=== PATIENT | male | born 1980 | race Caucasian/White ===

== ENCOUNTER 2018-03-27 17:53 | Observation (INO) | payer SELFPAY ==
--- NOTE | 2018-03-27 18:13 | ER Document Report ---
ED Substance Abuse / Acc. OD - General Chief Complaint: Possible Overdose Stated Complaint: POSSIBLE OVERDOSE Time Seen by Provider: 03/27/18 18:12 Mode of Arrival: Stretcher Information source: Emergency Med Personnel Cannot obtain history due to: Altered mental status Notes: Patient was brought in by EMS after he had injected himself with heroin. Patient became altered on 911 was called. EMS gave him a milligram of Narcan and he became more arousable and talking. Patient said he abuses heroin and he intends to quit. Patient also complained of headache and chest pain. - HPI Patient complains to provider of: Accidental overdose, Drug abuse, Substance abuse Onset: Just prior to arrival Onset/Duration: Sudden Quality of pain: Achy Severity: Mild Pain Level: 2 Overdose of: Other - Heroine Associated Symptoms: Chest pain/discomfort, Headache Similar symptoms previously: No Recently seen / treated by doctor: No - Related Data Allergies/Adverse Reactions: No Known Allergies Allergy (Unverified 03/27/18 18:23) Past Medical History - Social History Smoking Status: Unknown if Ever Smoked Family History: Reviewed & Not Pertinent Review of Systems - Review of Systems Constitutional: No symptoms reported EENT: No symptoms reported Cardiovascular: Chest pain Respiratory: No symptoms reported Gastrointestinal: No symptoms reported Genitourinary: No symptoms reported Male Genitourinary: No symptoms reported Musculoskeletal: No symptoms reported Skin: No symptoms reported Hematologic/Lymphatic: No symptoms reported Neurological/Psychological: Headaches -: Yes All other systems reviewed and negative Physical Exam - Vital signs Vitals: Resp BP Pulse Ox 11 L 126/96 H 91 L 03/27/18 18:01 03/27/18 18:01 03/27/18 18:01 Interpretation: Normal - General General appearance: Alert, Lethargic In distress: None - HEENT Head: Normocephalic, Atraumatic Eyes: Normal Pupils: PERRL - Respiratory Respiratory status: No respiratory distress Chest status: Nontender Breath sounds: Normal Chest palpation: Normal - Cardiovascular Rhythm: Regular Heart sounds: Normal auscultation Murmur: No - Abdominal Inspection: Normal Distension: No distension Bowel sounds: Normal Tenderness: Nontender Organomegaly: No organomegaly - Back Back: Normal, Nontender - Extremities General upper extremity: Normal inspection, Nontender, Normal color, Normal ROM , Normal temperature General lower extremity: Normal inspection, Nontender, Normal color, Normal ROM , Normal temperature, Normal weight bearing. No: Fernando's sign - Neurological Neuro grossly intact: Yes Cognition: Normal Orientation: AAOx4 [place] Coma Scale Eye Opening: Spontaneous [place] Coma Scale Verbal: Oriented [place] Coma Scale Motor: Obeys Commands [place] Coma Scale Total: 15 Speech: Normal Motor strength normal: LUE, RUE, LLE, RLE Sensory: Normal - Psychological Associated symptoms: Normal affect, Normal mood - Skin Skin Temperature: Warm Skin Moisture: Dry Skin Color: Normal Course - Vital Signs Vital signs: Temp Pulse Resp BP Pulse Ox 97.9 F 11 L 126/96 H 94 03/27/18 18:04 03/27/18 18:01 03/27/18 18:01 03/27/18 18:18 - Laboratory Result Diagrams: 03/27/18 17:26 03/27/18 17:26 Laboratory results interpreted by me: 03/27/18 03/27/18 03/27/18 17:26 17:26 17:26 Hgb 12.2 L Hct 37.2 L MCV 78 L MCH 25.5 L RDW 21.7 H Plt Count 549 H Carbon Dioxide 32 H Glucose 153 H Magnesium 2.4 H NT-Pro-B Natriuret Pep 257 H Total Protein 8.3 H - Diagnostic Test Radiology reviewed: Image reviewed, Reports reviewed - EKG Interpretation by Me EKG shows normal: Sinus rhythm Rate: Tachycardia - 101 When compared to previous EKG there are: Previous EKG unavailable Additional EKG results interpreted by me: 03/27/18 18:14 Prolonged QT, No STEMI. - Transfer of Care Care transferred to following provider: Patient will be admitted by Dr. Fabiola Howe. Notes: 03/27/18 18:24 Heroin abuse. Altered mental status. Discharge - Discharge Clinical Impression: Heroin abuse Altered mental status Qualifiers: Altered mental status type: unspecified Qualified Code(s): R41.82 - Altered mental status, unspecified Heroin overdose Qualifiers: Encounter type: initial encounter Injury intent: accidental or unintentional Qualified Code(s): T40.1X1A - Poisoning by heroin, accidental (unintentional), initial encounter Condition: Stable Disposition: ADMITTED OBSERVATION Admitting Provider: Hospitalist Unit Admitted: Telemetry
[2018-03-27] MEDS ORDERED: NALOXONE HCL INJ 2 MG/2 ML DISP.SYRIN IV ONE (18:19)
[2018-03-27] MEDS ORDERED: NORMAL SALINE 1000 ML 1,000 ML IV ONE (18:20)
[2018-03-27 18:29] LABS: ABSOLUTE BASOPHILS # (AUTO) 0.1 10^3/uL (0.0-0.2); ABSOLUTE EOSINOPHILS # (AUTO) 0.6 10^3/uL (0.0-0.6); ABSOLUTE MONOCYTES (AUTO) 0.7 10^3/uL (0.1-1.4); ABSOLUTE NEUT (AUTO) 4.9 10^3/uL (1.7-8.2); BASOPHILS % (AUTO) 0.6 % (0-2); HEMATOCRIT 37.2 % (37.9-51.0); HEMOGLOBIN 12.2 g/dL (13.5-17.0); LYMPHOCYTES % (AUTO) 39.4 % (13-45); MEAN CORPUSCULAR HEMOGLOBIN 25.5 pg (27.0-33.4); MEAN CORPUSCULAR HGB CONC 32.6 g/dL (32.0-36.0); MEAN CORPUSCULAR VOLUME 78 fl (80-97); MONOCYTES % (AUTO) 6.4 % (3-13); PLATELET COUNT 549 10^3/uL (150-450); RED BLOOD COUNT 4.76 10^6/uL (4.35-5.55); RED CELL DISTRIBUTION WIDTH 21.7 % (11.5-14.0); SEGMENTED NEUTROPHILS % (AUTO) 47.6 % (42-78); TOTAL CELLS COUNTED % (AUTO) 100 %; WHITE BLOOD COUNT 10.2 10^3/uL (4.0-10.5)
[2018-03-27 18:32] LABS: ALANINE AMINOTRANSFERASE 36 U/L (21-72); ALBUMIN 4.1 g/dL (3.5-5.0); ALKALINE PHOSPHATASE 101 U/L (38-126); ANION GAP 8 (5-19); ASPARTATE AMINO TRANSFERASE 42 U/L (17-59); BILIRUBIN,DIRECT 0.3 mg/dL (0.0-0.4); BILIRUBIN,TOTAL 0.5 mg/dL (0.2-1.3); BLOOD UREA NITROGEN 18 mg/dL (7-20); CALCIUM 9.2 mg/dL (8.4-10.2); CARBON DIOXIDE 32 mmol/L (22-30); CHLORIDE 100 mmol/L (98-107); CREATINE KINASE 98 U/L (55-170); GLUCOSE 153 mg/dL (75-110); POTASSIUM 4.8 mmol/L (3.6-5.0); TOTAL PROTEIN 8.3 g/dL (6.3-8.2)
[2018-03-27 18:33] LABS: ALCOHOL < 10 mg/dL (NONE DETECTED)
[2018-03-27 18:44] LABS: CREATINE KINASE MB 1.35 ng/mL (<4.55); NT PRO BNP 257 pg/mL (<125)
[2018-03-27 18:45] LABS: TROPONIN I < 0.012 ng/mL
--- NOTE | 2018-03-27 20:16 | RADIOLOGY REPORT (SQ) ---
EXAM DESCRIPTION: CT HEAD WITHOUT COMPLETED DATE/TIME: 03/27/2018 7:50 pm REASON FOR STUDY: Headache COMPARISON: None. TECHNIQUE: Axial images acquired through the brain without intravenous contrast. Images reviewed wi th bone, brain and subdural windows. Additional sagittal and coronal reconstructions were generated. Images stored on PACS. All CT scanners at this facility use dose modulation, iterative reconstruction, and/or weight based d osing when appropriate to reduce radiation dose to as low as reasonably achievable (ALARA). [facility]: Dose Right [facility]: CareDose [facility]: Dose Right [facility]: Teradose 4D [facility]: [employer] RADIATION DOSE: CT Rad equipment meets quality standard of care and radiation dose reduction techniq ues were employed. CTDIvol: 53.2 mGy. DLP: 991 mGy-cm. mGy. LIMITATIONS: None. FINDINGS: VENTRICLES: Normal size and contour. CEREBRUM: No masses. No hemorrhage. No midline shift. No evidence for acute infarction. Normal gra y/white matter differentiation. No areas of low density in the white matter. CEREBELLUM: No masses. No hemorrhage. No alteration of density. No evidence for acute infarction. EXTRAAXIAL SPACES: No fluid collections. No masses. ORBITS AND GLOBE: No intra- or extraconal masses. Normal contour of globe without masses. CALVARIUM: No fracture. PARANASAL SINUSES: No fluid or mucosal thickening. SOFT TISSUES: No mass or hematoma. OTHER: No other significant finding. IMPRESSION: NORMAL BRAIN CT WITHOUT CONTRAST. EVIDENCE OF ACUTE STROKE: NO. COMMENT: Quality ID # [id number]: Final reports with documentation of one or more dose reduction techniques (e.g., Automated exposure control, adjustment of the mA and/or kV according to patient size, use of iterative reconstruction technique) TECHNICAL DOCUMENTATION: JOB ID: [id number] [employer]- All Rights Reserved Reading location - IP/workstation name: [email or web address]
--- NOTE | 2018-03-27 20:17 | RADIOLOGY REPORT (SQ) ---
EXAM DESCRIPTION: CHEST SINGLE VIEW COMPLETED DATE/TIME: 03/27/2018 7:51 pm REASON FOR STUDY: CP COMPARISON: None. EXAM PARAMETERS: NUMBER OF VIEWS: One view. TECHNIQUE: Single frontal radiographic view of the chest acquired. RADIATION DOSE: NA LIMITATIONS: None. FINDINGS: LUNGS AND PLEURA: Ill-defined opacification in the left base. MEDIASTINUM AND HILAR STRUCTURES: No masses. Contour normal. HEART AND VASCULAR STRUCTURES: Heart normal in size. Normal vasculature. BONES: No acute findings. HARDWARE: None in the chest. OTHER: No other significant finding. IMPRESSION: Cannot exclude very limited left lower lobe pneumonia. TECHNICAL DOCUMENTATION: JOB ID: [id number] [employer]- All Rights Reserved Reading location - IP/workstation name: [email or web address]
[2018-03-27] MEDS ORDERED: PROMETHAZINE HCL INJ 25 MG/1 ML VIAL IV PRN (22:37)
[2018-03-27] MEDS ORDERED: ACETAMINOPHEN 325 MG TABLET PO PRN (22:37)
[2018-03-27] MEDS ORDERED: MAG HYDROX/AL HYDROX/SIMETH SUSP 30 ML UDCUP PO PRN (22:37)
[2018-03-27] MEDS ORDERED: NORMAL SALINE 1000 ML 1,000 ML IV PRN (22:37)
[2018-03-27] MEDS ORDERED: PROMETHAZINE HCL 25 MG TABLET PO PRN (22:37)
[2018-03-27] MEDS ORDERED: DOXYCYCLINE HYCLATE 100 MG TABLET PO ONE (23:00)
[2018-03-27 23:13] LABS: APPEARANCE,URINE CLOUDY; BILIRUBIN,URINE NEGATIVE (NEGATIVE); COLOR,URINE YELLOW; GLUCOSE, URINE NEGATIVE (NEGATIVE); KETONES,URINE NEGATIVE (NEGATIVE); LEUKOCYTE ESTERASE,URINE NEGATIVE (NEGATIVE); NITRITE,URINE NEGATIVE (NEGATIVE); PROTEIN,URINE NEGATIVE (NEGATIVE); URINE SPECIFIC GRAVITY 1.011; UROBILINOGEN,URINE NEGATIVE mg/dL (<2.0)
[2018-03-27 23:20] LABS: URINE AMPHETAMINES SCREEN UNCONFIRMED POSITIVE; URINE BARBITURATES SCREEN NEGATIVE; URINE BENZODIAZEPINES SCREEN NEGATIVE; URINE COCAINE SCREEN NEGATIVE; URINE MARIJUANA (THC) SCREEN NEGATIVE; URINE METHADONE SCREEN NEGATIVE; URINE PHENCYCLIDINE SCREEN NEGATIVE
[2018-03-28] MEDS: OXYCODONE-ACETAMINOPHEN 5-325 MG TABLET PO PRN ×4 (00:03→12:42)
[2018-03-28] MEDS ORDERED: DOXYCYCLINE HYCLATE 100 MG TABLET PO ONE (00:37)
--- NOTE | 2018-03-28 02:15 | PDOC H&P ---
History of Present Illness Admission Date/PCP: 03/27/18 20:49 None Patient complains of: Altered mental status History of Present Illness: LUCIUS FLETCHER is a 38 year old male with history of IV drug abuse who came obtunded to the emergency department. By the time I went to evaluate that he was alert and oriented x4, he tells me that he went in the evening to see his girlfriend and he started shooting heroin, he passed out and does not remember anything until he woke up in the emergency department. Patient was brought by EMS, given 1 mg of Narcan and he became more arousable but was a still falling asleep. Patient abuses meth and heroin. Initially complaining of headache and chest pain which resolved. Patient tells me that he has been hospitalized about 3 weeks ago in [place] and he has been told he has some splenic fluid trauma, he was there for 8 days. Tells me that he is having hemoptysis with dark blood on and off, apparently no workup has been done. Urine drug screen positive for opiates and amphetamines CT of the head negative. Chest x-ray with possible left lower lobe infiltrates , patient tells me that he was diagnosed with possible pneumonia during his last hospitalization in [place] and he was discharged with p.o. antibiotics that he completed. Past Medical History Medical History: None Psychiatric Medical History: Denies: Depression Past Surgical History Past Surgical History: Reports: None Social History Smoking Status: Current Every Day Smoker - 1 pack/day, currently states 2-3 cigarettes a day Last Time Smoked: 2 or 3 days ago Frequency of Alcohol Use: Social Hx Recreational Drug Use: Yes Drugs: Heroin, Other - IV methamphetamines Hx Prescription Drug Abuse: No Family History Family History: Reviewed & Not Pertinent Parental Family History Reviewed: No Children Family History Reviewed: NA Sibling(s) Family History Reviewed.: NA Medication/Allergy Home Medications: No Home Medications 03/27/18 Allergies/Adverse Reactions: No Known Allergies Allergy (Unverified 03/27/18 18:23) Review of Systems Review of Systems: As outlined in the HPI, others negative Physical Exam Vital Signs: Temp Pulse Resp BP Pulse Ox 97.9 F 84 20 106/74 96 03/27/18 23:53 03/27/18 23:53 03/27/18 23:53 03/27/18 23:53 03/27/18 23:53 Intake & Output 03/26/18 03/27/18 03/28/18 06:59 06:59 06:59 Weight 68.9 kg Additional comments: General appearance: Disheveled, skinny, alert and cooperative, and appears to be in no acute distress Head: Normocephalic Eyes: PEERL, EOMI, vision is grossly intact. Ears: External auditory canal and tympanic membranes clear, hearing grossly intact. Nose: No nasal discharge. Throat: Oral cavity and pharynx normal. No inflammation, swelling, exudate or lesions. Neck: Neck supple, nontender without lymphadenopathy, masses or thyromegaly. Cardiac: Normal S1 and S2. No S3, S4 or murmurs. Rhythm is regular. There is no peripheral edema, cyanosis or pallor. Extremities are warm and well perfused. Capillary refill is less than 2 seconds. No carotid bruits. Lungs: Clear to auscultation and percussion without rales, rhonchi, wheezing or diminished breath sounds. Not using accessory muscles. Abdomen: Positive bowel sounds. Soft. Nondistended, nontender. No guarding or rebound. No masses. No hepatosplenomegaly Extremities: No significant deformity or joint abnormality. No edema. Peripheral pulses intact. No varicosities. Neurological: Cranial nerves II through XII grossly intact. Strength and sensation symmetric and intact throughout. Reflexes 2+ throughout. Skin: Multiple track yeager in upper and lower extremities, warm and dry. Psychiatric: The mental examination revealed the patient was oriented to person , place, and time. The patient was able to demonstrate good judgment on recent , without hallucinations, abnormal affect or abnormal behaviors. Results Laboratory Results: 03/27/18 22:52 Urine Color YELLOW Urine Appearance CLOUDY Urine pH 7.0 Ur Specific [place] 1.011 Urine Protein NEGATIVE Urine Glucose (UA) NEGATIVE Urine Ketones NEGATIVE Urine Blood NEGATIVE Urine Nitrite NEGATIVE Ur Leukocyte Esterase NEGATIVE Urine RBC (Auto) 0 03/27/18 03/27/18 03/27/18 17:26 17:26 22:52 WBC 10.2 RBC 4.76 Hgb 12.2 L Hct 37.2 L MCV 78 L MCH 25.5 L MCHC 32.6 RDW 21.7 H Plt Count 549 H Seg Neutrophils % 47.6 Lymphocytes % 39.4 Monocytes % 6.4 Eosinophils % 6.0 Basophils % 0.6 Absolute Neutrophils 4.9 Absolute Lymphocytes 4.0 Absolute Monocytes 0.7 Absolute Eosinophils 0.6 Absolute Basophils 0.1 Sodium 140.0 Potassium 4.8 Chloride 100 Carbon Dioxide 32 H Anion Gap 8 BUN 18 Creatinine 0.91 Est GFR ( Amer) > 60 Est GFR (Non-Af Amer) > 60 Glucose 153 H Calcium 9.2 Magnesium 2.4 H Total Bilirubin 0.5 Direct Bilirubin 0.3 AST 42 ALT 36 Alkaline Phosphatase 101 Creatine Kinase 98 Total Protein 8.3 H Albumin 4.1 Urine Color YELLOW Urine Appearance CLOUDY Urine pH 7.0 Ur Specific [place] 1.011 Urine Protein NEGATIVE Urine Glucose (UA) NEGATIVE Urine Ketones NEGATIVE Urine Blood NEGATIVE Urine Nitrite NEGATIVE Urine Bilirubin NEGATIVE Urine Urobilinogen NEGATIVE Ur Leukocyte Esterase NEGATIVE Urine RBC (Auto) 0 U Hyaline Cast (Auto) 14 Urine Mucus (Auto) RARE Urine Ascorbic Acid NEGATIVE Serum Alcohol < 10 Impressions: Head CT 03/27/18 18:19 IMPRESSION: NORMAL BRAIN CT WITHOUT CONTRAST. EVIDENCE OF ACUTE STROKE: NO. Assessment & Plan - Diagnosis (1) Heroin overdose Qualifiers: Encounter type: initial encounter Injury intent: accidental or unintentional Qualified Code(s): T40.1X1A - Poisoning by heroin, accidental ( unintentional), initial encounter Is this a current diagnosis for this admission?: Yes Plan: Patient comes obtunded secondary to heroin overdose, after being the ED given naloxone and IV fluids he woke up, was alert and oriented x4. We will keep him under telemetry monitoring with observation overnight. In the meantime I will send hepatitis panel and HIV. CT head negative (2) Hemoptysis Is this a current diagnosis for this admission?: Yes Plan: Patient complains of hemoptysis for the last month, I am concerned that the patient can be shooting septic emboli that we cannot see in the chest x-ray. I will go ahead and place a CT chest with contrast. No active hemoptysis in the ED. Besides the on and off hemoptysis patient does not have other respiratory symptoms. (3) Pneumonia Qualifiers: Laterality: left Lung location: lower lobe of lung Is this a current diagnosis for this admission?: Yes Plan: During his last hospitalization in [place] he was diagnosed with pneumonia and completed p.o. treatment at home. These images can be old but also can be a new aspiration pneumonia. Patient does not have any respiratory symptom besides intermittent hemoptysis for a month. I will go ahead and place him on p.o. doxycycline until we can get done the CTA chest. - Time Time Spent: 30 to 50 Minutes
[2018-03-28 05:16] LABS: ABSOLUTE EOSINOPHILS # (AUTO) 0.5 10^3/uL (0.0-0.6); ABSOLUTE LYMPHOCYTES (AUTO) 2.5 10^3/uL (0.5-4.7); ABSOLUTE MONOCYTES (AUTO) 0.5 10^3/uL (0.1-1.4); ABSOLUTE NEUT (AUTO) 2.7 10^3/uL (1.7-8.2); BASOPHILS % (AUTO) 0.7 % (0-2); HEMOGLOBIN 11.4 g/dL (13.5-17.0); MEAN CORPUSCULAR HEMOGLOBIN 25.5 pg (27.0-33.4); MEAN CORPUSCULAR HGB CONC 32.5 g/dL (32.0-36.0); MEAN CORPUSCULAR VOLUME 79 fl (80-97); MONOCYTES % (AUTO) 7.6 % (3-13); PLATELET COUNT 441 10^3/uL (150-450); RED BLOOD COUNT 4.46 10^6/uL (4.35-5.55); RED CELL DISTRIBUTION WIDTH 21.5 % (11.5-14.0); SEGMENTED NEUTROPHILS % (AUTO) 43.7 % (42-78); TOTAL CELLS COUNTED % (AUTO) 100 %; WHITE BLOOD COUNT 6.3 10^3/uL (4.0-10.5)
[2018-03-28 05:41] LABS: ALANINE AMINOTRANSFERASE 37 U/L (21-72); ALBUMIN 3.3 g/dL (3.5-5.0); ALKALINE PHOSPHATASE 80 U/L (38-126); ANION GAP 8 (5-19); ASPARTATE AMINO TRANSFERASE 36 U/L (17-59); BILIRUBIN,DIRECT 0.1 mg/dL (0.0-0.4); BILIRUBIN,TOTAL 0.2 mg/dL (0.2-1.3); BLOOD UREA NITROGEN 15 mg/dL (7-20); CALCIUM 8.8 mg/dL (8.4-10.2); CARBON DIOXIDE 31 mmol/L (22-30); CHLORIDE 103 mmol/L (98-107); GLUCOSE 70 mg/dL (75-110); POTASSIUM 4.5 mmol/L (3.6-5.0); SODIUM 141.6 mmol/L (137-145); TOTAL PROTEIN 7.1 g/dL (6.3-8.2)
--- NOTE | 2018-03-28 07:55 | EKG REPORT ---
SEVERITY:- BORDERLINE ECG - SINUS TACHYCARDIA BORDERLINE PROLONGED QT INTERVAL : Confirmed by: Chuy Jessica MD 28-Mar-2018 07:55:15
[2018-03-28] MEDS ORDERED: DOXYCYCLINE HYCLATE 100 MG TABLET PO SCH (10:00)
[2018-03-28] MEDS ORDERED: ENOXAPARIN SODIUM INJ 40 MG/0.4 ML DISP.SYRIN SUBCUT SCH (10:00)
--- NOTE | 2018-03-28 13:44 | RADIOLOGY REPORT (SQ) ---
EXAM DESCRIPTION: CT CHEST WITH COMPLETED DATE/TIME: 03/28/2018 9:13 am REASON FOR STUDY: hemoptysis COMPARISON: None. TECHNIQUE: CT scan of the chest performed using helical scanning technique with dynamic intravenous contrast injection. Images reviewed with lung, soft tissue and bone windows. Reconstructed coronal and sagittal MPR and MIP images reviewed. All images stored on PACS. All CT scanners at this facility use dose modulation, iterative reconstruction, and/or weight based d osing when appropriate to reduce radiation dose to as low as reasonably achievable (ALARA). [facility]: Dose Right [facility]: CareDose [facility]: Dose Right [facility]: Teradose 4D [facility]: [employer] CONTRAST TYPE AND DOSE: 80 mL Omnipaque 350- low osmolar. RENAL FUNCTION: BUN 15 creatinine 0.7 RADIATION DOSE: . LIMITATIONS: None. FINDINGS: LUNGS AND PLEURA: Small left pleural effusion. Focal opacification in the left lower lobe with some air bronchograms. HILAR AND MEDIASTINAL STRUCTURES: No identified masses or abnormal nodes. HEART AND VASCULAR STRUCTURES: No aneurysm or dissection. No central pulmonary emboli. No pericardi al effusion. HARDWARE: None in the chest. UPPER ABDOMEN: Large area of decreased attenuation in the subcapsular area of the spleen laterally. THYROID AND OTHER SOFT TISSUES: No masses. No adenopathy. BONES: No significant finding. OTHER: No other significant finding. IMPRESSION: 1. Small left pleural effusion. What appears to be left lower lobe pneumonia. 2. Decreased attenuation in the subcapsular spleen. Is there history recent trauma? Could represen t an older subcapsular hematoma. TECHNICAL DOCUMENTATION: JOB ID: [id number] Quality ID # [id number]: Final reports with documentation of one or more dose reduction techniques (e.g., Au tomated exposure control, adjustment of the mA and/or kV according to patient size, use of iterative reconstruction technique) 2010 [employer] [employer] ([employer])- All Rights Reserved Reading location - IP/workstation name: [email or web address]
--- NOTE | 2018-03-28 16:25 | PDOC DISCHARGE SUMMARY ---
General - Admit/Disc Date/PCP Admission Date/Primary Care Provider: 03/27/18 20:49 Discharge Date: 03/28/18 - Discharge Diagnosis (1) Heroin overdose Is this a current diagnosis for this admission?: Yes Summary: Initially required Narcan. We kept him in here for monitoring to make sure he did not need additional doses. He has not expressed any real desire to quit. (2) Aspiration pneumonia Is this a current diagnosis for this admission?: Yes Summary: Likely when he overdosed. We did a CT scan of his chest which did not show anything more than the left lower lobe pneumonia. I started him on some clindamycin. Complete this is an outpatient. - Additional Information Discharge Diet: Regular Discharge Activity: Activity As Tolerated Prescriptions: Clindamycin HCl 450 mg PO TID #45 capsule Home Medications: Clindamycin HCl 450 mg PO TID #45 capsule 03/28/18 History of Present Illness History of Present Illness: LUCIUS FLETCHER is a 38 year old male with history of IV drug abuse who came obtunded to the emergency department. By the time I went to evaluate that he was alert and oriented x4, he tells me that he went in the evening to see his girlfriend and he started shooting heroin, he passed out and does not remember anything until he woke up in the emergency department. Patient was brought by EMS, given 1 mg of Narcan and he became more arousable but was a still falling asleep. Patient abuses meth and heroin. Initially complaining of headache and chest pain which resolved. Patient tells me that he has been hospitalized about 3 weeks ago in [place] and he has been told he has some splenic fluid trauma, he was there for 8 days. Tells me that he is having hemoptysis with dark blood on and off, apparently no workup has been done. Urine drug screen positive for opiates and amphetamines CT of the head negative. Chest x-ray with possible left lower lobe infiltrates , patient tells me that he was diagnosed with possible pneumonia during his last hospitalization in [place] and he was discharged with p.o. antibiotics that he completed. Hospital Course Hospital Course: We started him empirically on some antibiotics for a likely aspiration pneumonia , and he can complete a course this is an outpatient. He did complain of some hemoptysis but it we have not seen any of that here. Chest CT did not show anything more sinister than the left lower lobe pneumonia from his aspiration. He overdosed on heroin and that is why he came to the hospital. He responded to Narcan. We kept him here for observation to make sure he did not need any further dosing. He is maintaining a fairly normal mental status without requiring additional doses of Narcan. He has not expressed any desire to quit. He is being discharged home in good condition. He was strongly encouraged to abstain from drugs. Physical Exam Vital Signs: Temp Pulse Resp BP Pulse Ox 97.9 F 74 20 106/74 96 03/28/18 15:53 03/28/18 15:53 03/28/18 15:53 03/28/18 15:53 03/28/18 15:53 Intake & Output 03/27/18 03/28/18 03/29/18 06:59 06:59 06:59 Intake Total 744 Balance 744 Weight 68.9 kg General appearance: PRESENT: no acute distress, cooperative, disheveled Respiratory exam: PRESENT: clear to auscultation nadia, unlabored. ABSENT: accessory muscle use, rales, rhonchi, tachypnea, wheezes Cardiovascular exam: PRESENT: RRR, +S1, +S2. ABSENT: diastolic murmur, systolic murmur GI/Abdominal exam: PRESENT: normal bowel sounds, soft. ABSENT: guarding, rebound, tenderness Extremities exam: PRESENT: full ROM. ABSENT: pedal edema Musculoskeletal exam: PRESENT: ambulatory, normal inspection. ABSENT: deformity Neurological exam: PRESENT: alert, awake, oriented to person, oriented to place , oriented to time, oriented to situation Psychiatric exam: PRESENT: appropriate affect, normal mood Results Laboratory Results: 03/28/18 04:05 03/28/18 04:05 03/27/18 03/28/18 03/28/18 22:52 04:05 04:05 WBC 6.3 RBC 4.46 Hgb 11.4 L Hct 35.0 L MCV 79 L MCH 25.5 L MCHC 32.5 RDW 21.5 H Plt Count 441 Seg Neutrophils % 43.7 Lymphocytes % 40.0 Monocytes % 7.6 Eosinophils % 8.0 H Basophils % 0.7 Absolute Neutrophils 2.7 Absolute Lymphocytes 2.5 Absolute Monocytes 0.5 Absolute Eosinophils 0.5 Absolute Basophils 0.0 Sodium 141.6 Potassium 4.5 Chloride 103 Carbon Dioxide 31 H Anion Gap 8 BUN 15 Creatinine 0.70 Est GFR ( Amer) > 60 Est GFR (Non-Af Amer) > 60 Glucose 70 L Calcium 8.8 Total Bilirubin 0.2 AST 36 ALT 37 Alkaline Phosphatase 80 Total Protein 7.1 Albumin 3.3 L Urine Color YELLOW Urine Appearance CLOUDY Urine pH 7.0 Ur Specific [place] 1.011 Urine Protein NEGATIVE Urine Glucose (UA) NEGATIVE Urine Ketones NEGATIVE Urine Blood NEGATIVE Urine Nitrite NEGATIVE Ur Leukocyte Esterase NEGATIVE Urine RBC (Auto) 0 Impressions: Chest CT 03/27/18 00:00 IMPRESSION: 1. Small left pleural effusion. What appears to be left lower lobe pneumonia. 2. Decreased attenuation in the subcapsular spleen. Is there history recent trauma? Could represent an older subcapsular hematoma. Head CT 03/27/18 18:19 IMPRESSION: NORMAL BRAIN CT WITHOUT CONTRAST. EVIDENCE OF ACUTE STROKE: NO. Qualifiers - * PATIENT BEING DISCHARGED WITH ANY OF THE FOLLOWING DIAGNOSIS: No
[2018-03-28 17:25] VITALS: BP 108/68
[2018-03-29 07:43] LABS: HEPATITIS A AB IGM Negative (Negative); HEPATITIS B CORE AB IGM Negative (Negative); HEPATITS B SURFACE ANTIGEN Negative (Negative)
[2018-03-29 07:46] LABS: HEPATITIS C VIRUS ANTIBODY >11.0 s/co ratio (0.0-0.9)
== END 2018-03-28 17:20 | disposition home or self-care (01) ==
LOC: ER 17:53 → EH 20:49 → 4N 23:52
PROVIDERS: ADMIT Internal Medicine; ATTEND Internal Medicine
DX: T40.1X1A Poisoning by heroin, accidental (unintentional), initial encounter (principal); J69.0 Pneumonitis due to inhalation of food and vomit; F15.10 Other stimulant abuse, uncomplicated; F11.10 Opioid abuse, uncomplicated; R51 Headache; R00.0 Tachycardia, unspecified; F17.210 Nicotine dependence, cigarettes, uncomplicated
CPT/HCPCS: 93005; 99285; 96374; 36415 ×2; 82553; 80307 ×2; 82550; 83735; 85025 ×2; 80053 ×2; 81001; 84484; 86701; 80074; 83880; 71045; 70450; 71260; 93010; G0378 ×2; J2310; J7030 ×2

== ENCOUNTER 2020-01-07 15:04 | Emergency (ER) | payer SELFPAY ==
[2020-01-07 15:19] VITALS: BP 124/79
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
[2020-01-07] MEDS ORDERED: KETOROLAC TROMETHAMINE 60 MG/2 ML SDV IM ONE (17:30)
== END 2020-01-07 17:36 | disposition home or self-care (01) ==
LOC: ER 15:04
DX: M25.512 Pain in left shoulder (principal); V28.9XXA Unspecified motorcycle rider injured in noncollision transport accident in traffic accident, initial encounter; F17.200 Nicotine dependence, unspecified, uncomplicated
CPT/HCPCS: 99283; 96372; 73030; J1885

== ENCOUNTER 2020-03-14 19:34 | Emergency (ER) | payer SELFPAY ==
[2020-03-14 19:43] VITALS: BP 123/90
[2020-03-14] MEDS ORDERED: CYCLOBENZAPRINE HCL 10 MG TABLET PO ONE (19:53)
[2020-03-14] MEDS ORDERED: METHYLPREDNISOLONE INJ 125 MG/2 ML SDV IM ONE (19:53)
[2020-03-14] MEDS ORDERED: KETOROLAC TROMETHAMINE 60 MG/2 ML SDV IM ONE (19:53)
--- NOTE | 2020-03-14 20:51 | RADIOLOGY REPORT (SQ) ---
EXAM DESCRIPTION: XR THORACIC SPINE 2 VIEWS COMPLETED DATE/TME: 03/14/2020 19:52 CLINICAL HISTORY: 40 years, Male, back pain COMPARISON: March 28, [address] NUMBER OF VIEWS: 2 TECHNIQUE: Frontal and lateral views of the thoracic spine were obtained LIMITATIONS: None. FINDINGS: There is no evidence of thoracic spine fracture or subluxation. Mild apparent dextroscoliosis is noted, most likely positional when correlated with the chest CT. IMPRESSION: No acute abnormality as above. copyright 2010 [employer]- All Rights Reserved
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
== END 2020-03-14 21:12 | disposition home or self-care (01) ==
LOC: ER 19:34
DX: M54.6 Pain in thoracic spine (principal); X50.0XXA Overexertion from strenuous movement or load, initial encounter; F17.200 Nicotine dependence, unspecified, uncomplicated
CPT/HCPCS: 99284; 96372; 72070; J1885; J2930

== ENCOUNTER 2020-04-03 17:29 | Emergency (ER) | payer SELFPAY ==
--- NOTE | 2020-04-03 18:10 | ER Document Report ---
ED Medical Screen (RME) - General Stated Complaint: BACK/NECK PAIN, NUMBNESS Time Seen by Provider: 04/03/20 18:00 Information source: Patient Notes: Patient presents complaining of neck and upper back pain for the past 3 weeks after an injury. Patient states he was moving something heavy and had a sudden onset of pain. Patient states he had x-rays performed and has been taking the counter medicines without relief. Patient states that he has numbness to his chest abdomen and back. Patient reports that he has had constipation symptoms with no bowel movement for the past 2 weeks. Patient reports weakness to bilateral upper extremities. I have greeted and performed a rapid initial assessment of this patient. A comprehensive ED assessment and evaluation of the patient, analysis of test results and completion of the medical decision making process will be conducted by additional ED providers. TRAVEL OUTSIDE OF THE [place] IN LAST 30 DAYS: No - Related Data Allergies/Adverse Reactions: No Known Allergies Allergy (Unverified 03/27/18 18:23) Past Medical History Renal/ Medical History: Denies: Hx Peritoneal Dialysis Psychiatric Medical History: Denies: Hx Depression Physical Exam - Vital signs Vitals: Temp Pulse Resp BP Pulse Ox 98.1 F 97 18 134/84 H 99 04/03/20 17:35 04/03/20 17:35 04/03/20 17:35 04/03/20 17:35 04/03/20 17:35 - General General appearance: Alert, Anxious Notes: Tenderness to cervical upper thoracic spine see 6 to T3 area Course - Vital Signs Vital signs: Temp Pulse Resp BP Pulse Ox 98.1 F 97 18 134/84 H 99 04/03/20 17:35 04/03/20 17:35 04/03/20 17:35 04/03/20 17:35 04/03/20 17:35
--- NOTE | 2020-04-03 18:35 | RADIOLOGY REPORT (SQ) ---
EXAM DESCRIPTION: KUB/ABDOMEN (SINGLE VIEW) IMAGES COMPLETED DATE/TIME: 04/03/2020 6:23 pm REASON FOR STUDY: constipation COMPARISON: None. NUMBER OF VIEWS: One view. TECHNIQUE: Supine radiographic image of the abdomen acquired. LIMITATIONS: None. FINDINGS: BOWEL GAS PATTERN: Large amount retained stool. Nonobstructive gas pattern. CALCIFICATIONS: No suspicious calcifications. SOFT TISSUES: No gross mass or suggestion of organomegaly. HARDWARE: None in the abdomen. BONES: No acute fracture. No worrisome bone lesions. OTHER: No other significant finding. IMPRESSION: Constipation. TECHNICAL DOCUMENTATION: JOB ID: [id number] 2010 [employer]- All Rights Reserved Reading location - IP/workstation name: [email or web address]
--- NOTE | 2020-04-03 19:13 | RADIOLOGY REPORT (SQ) ---
EXAM DESCRIPTION: FACIAL BONES IMAGES COMPLETED DATE/TIME: 04/03/2020 6:56 pm REASON FOR STUDY: eval subcut FB prior to MRI COMPARISON: None. NUMBER OF VIEWS: Four view TECHNIQUE: Images of the facial bones acquired. LIMITATIONS: None. FINDINGS: ORBITS: No fracture. No foreign body. SINUSES: No mucosal thickening. No air fluid levels. FACIAL BONES: No fracture. OTHER: There is a round metallic foreign body present along the left jaw. Superficial location makes this unlikely to be significant. Test with magnet. IMPRESSION: Small foreign body in the soft tissues along the left jaw all. Likely of no concern for MRI. Test with magnet. TECHNICAL DOCUMENTATION: JOB ID: [id number] 2010 [employer]- All Rights Reserved Reading location - IP/workstation name: [email or web address]
[2020-04-03 19:25] LABS: ABSOLUTE BASOPHILS # (AUTO) 0.1 10^3/uL (0.0-0.2); ABSOLUTE EOSINOPHILS # (AUTO) 0.1 10^3/uL (0.0-0.6); ABSOLUTE LYMPHOCYTES (AUTO) 2.3 10^3/uL (0.5-4.7); ABSOLUTE MONOCYTES (AUTO) 0.7 10^3/uL (0.1-1.4); ABSOLUTE NEUT (AUTO) 6.9 10^3/uL (1.7-8.2); BASOPHILS % (AUTO) 0.7 % (0-2); EOSINOPHILS % (AUTO) 0.9 % (0-6); HEMATOCRIT 42.4 % (37.9-51.0); HEMOGLOBIN 14.5 g/dL (13.5-17.0); LYMPHOCYTES % (AUTO) 23.1 % (13-45); MEAN CORPUSCULAR HEMOGLOBIN 28.4 pg (27.0-33.4); MEAN CORPUSCULAR HGB CONC 34.1 g/dL (32.0-36.0); MEAN CORPUSCULAR VOLUME 83 fl (80-97); MONOCYTES % (AUTO) 6.5 % (3-13); PLATELET COUNT 437 10^3/uL (150-450); RED BLOOD COUNT 5.08 10^6/uL (4.35-5.55); RED CELL DISTRIBUTION WIDTH 14.9 % (11.5-14.0); SEGMENTED NEUTROPHILS % (AUTO) 68.8 % (42-78); TOTAL CELLS COUNTED % (AUTO) 100 %; WHITE BLOOD COUNT 10.1 10^3/uL (4.0-10.5)
[2020-04-03 19:42] LABS: ALKALINE PHOSPHATASE 127 U/L (38-126); ANION GAP 11 (5-19); ASPARTATE AMINO TRANSFERASE 37 U/L (17-59); BILIRUBIN,DIRECT 0.3 mg/dL (0.0-0.4); BILIRUBIN,TOTAL 0.6 mg/dL (0.2-1.3); BLOOD UREA NITROGEN 17 mg/dL (7-20); CALCIUM 9.6 mg/dL (8.4-10.2); CARBON DIOXIDE 29 mmol/L (22-30); CHLORIDE 97 mmol/L (98-107); GLUCOSE 91 mg/dL (75-110); POTASSIUM 4.4 mmol/L (3.6-5.0); TOTAL PROTEIN 7.4 g/dL (6.3-8.2)
--- NOTE | 2020-04-03 20:00 | RADIOLOGY REPORT (SQ) ---
EXAM DESCRIPTION: CT CERVICAL SPINE WITHOUT IMAGES COMPLETED DATE/TIME: 04/03/2020 7:41 pm REASON FOR STUDY: neck/upper back pain, numb trunk, weak UE COMPARISON: None. TECHNIQUE: Axial images acquired through the cervical spine without intravenous contrast. Images re viewed with lung, soft tissue and bone windows. Reconstructed coronal and sagittal MPR images review ed. Images stored on PACS. All CT scanners at this facility use dose modulation, iterative reconstruction, and/or weight based d osing when appropriate to reduce radiation dose to as low as reasonably achievable (ALARA). [facility]: Dose Right [facility]: CareDose [facility]: Dose Right [facility]: Teradose 4D [facility]: [employer] RADIATION DOSE: CT Rad equipment meets quality standard of care and radiation dose reduction techniq ues were employed. CTDIvol: 24.0 mGy. DLP: 490 mGy-cm. mGy. LIMITATIONS: None. FINDINGS: ALIGNMENT: Anatomic. MINERALIZATION: Focal kyphosis at C6-7. VERTEBRAL BODIES: There appears to be bone destruction involving C6 and C7. There appears to be some displacement of bone posteriorly at C6. This results in central canal stenosis. DISCS: The disc space at C6-7 is very irregular. There is slight irregularity of the disc space at C 5-C6. FACETS, LATERAL MASSES, POSTERIOR ELEMENTS: Bilateral perched facets at C6-7. There is widening of t he space between the spinous processes at C6 and C7. HARDWARE: None in the spine. VISUALIZED RIBS: No fractures. LUNG APICES AND SOFT TISSUES: No significant or acute findings. OTHER: No other significant finding. IMPRESSION: There are extensive changes at C6-7 with the suggestion of bone destruction in a regular vertebral endplates suggesting the possibility of discitis/ osteomyelitis involving those vertebrae and that disc space. Cannot exclude acute pathological fracture is at C6 and C7. There are perched facets at C6-7 and there is widening of the space between the spinous processes at C6 and C7, suggest ing perhaps disruption of the ligaments posteriorly. These findings result in central canal stenosis at C6. COMMENT: Pertinent findings on the imaging study reported as a CRITICAL RESULT to QASIM AUSTIN NP at19:54 on 04/03/2020. Category of Critical Result: Spinal fractures, possible bone destruction secondary to discitis/osteom yelitis. TECHNICAL DOCUMENTATION: JOB ID: [id number] Quality ID # [id number]: Final reports with documentation of one or more dose reduction techniques (e.g., Au tomated exposure control, adjustment of the mA and/or kV according to patient size, use of iterative reconstruction technique) 2010 [employer]- All Rights Reserved Reading location - IP/workstation name: [email or web address]
[2020-04-03] MEDS ORDERED: CEFTRIAXONE 2 GM/D5W RTU 2 GM/50 ML RTUPB IV ONE (20:05)
[2020-04-03] MEDS ORDERED: VANCOMYCIN HCL INJ 1000 MG VIAL IV ONE (20:08)
--- NOTE | 2020-04-03 20:15 | RADIOLOGY REPORT (SQ) ---
CT THORACIC SPINE WITHOUT IV CONTRAST HISTORY: Back pain. COMPARISON: None. TECHNIQUE: CT scan of the thoracic spine was performed without IV contrast. This exam was performed according to our departmental dose-optimization program, which includes automated exposure control, adjustment of the mA and/or kV according to patient size and/or use of iterative reconstruction technique. FINDINGS: No acute compression fracture is seen. The thoracic alignment is maintained. The disc spaces are preserved. No advanced canal stenosis is identified. IMPRESSION: No acute findings in the thoracic spine.
[2020-04-03] MEDS ORDERED: HYDROMORPHONE HCL INJ/PF 2 MG/ML AMPULE IV ONE ×2 (21:14→23:32)
[2020-04-03] MEDS ORDERED: RINGERS SOLUTION,LACTATED 1,000 ML IV ONE (21:15)
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
[2020-04-03 23:49] VITALS: BP 137/98
--- NOTE | 2020-04-04 06:59 | EKG REPORT ---
SEVERITY:- NORMAL ECG - SINUS RHYTHM : Confirmed by: Sridhar Mercado MD 04-Apr-2020 06:59:11
== END 2020-04-04 00:04 | disposition short-term general hospital (02) ==
LOC: ER 17:29
DX: S14.109A Unspecified injury at unspecified level of cervical spinal cord, initial encounter (principal); M48.02 Spinal stenosis, cervical region; M54.9 Dorsalgia, unspecified; R20.0 Anesthesia of skin; F17.200 Nicotine dependence, unspecified, uncomplicated; X50.0XXA Overexertion from strenuous movement or load, initial encounter
CPT/HCPCS: 93005; 99285; 96361; 96375; 96365; 36415; 87040; 85025; 85652; 86140; 80053; 70150; 74018; 72125; 72128; 93010; J1170; J7120; J3370; J0696

== ENCOUNTER → 2020-06-22 | Outpatient (CLI) | payer OTHER ==
[2020-06-22 15:02] LABS: ABSOLUTE EOSINOPHILS # (AUTO) 0.1 10^3/uL (0.0-0.6); ABSOLUTE LYMPHOCYTES (AUTO) 1.9 10^3/uL (0.5-4.7); ABSOLUTE MONOCYTES (AUTO) 0.3 10^3/uL (0.1-1.4); ABSOLUTE NEUT (AUTO) 1.7 10^3/uL (1.7-8.2); BASOPHILS % (AUTO) 0.6 % (0-2); EOSINOPHILS % (AUTO) 1.7 % (0-6); HEMATOCRIT 43.7 % (37.9-51.0); HEMOGLOBIN 14.4 g/dL (13.5-17.0); LYMPHOCYTES % (AUTO) 48.6 % (13-45); MEAN CORPUSCULAR HEMOGLOBIN 27.2 pg (27.0-33.4); MEAN CORPUSCULAR VOLUME 82 fl (80-97); MONOCYTES % (AUTO) 6.9 % (3-13); PLATELET COUNT 205 10^3/uL (150-450); RED BLOOD COUNT 5.31 10^6/uL (4.35-5.55); RED CELL DISTRIBUTION WIDTH 16.7 % (11.5-14.0); SEGMENTED NEUTROPHILS % (AUTO) 42.2 % (42-78); TOTAL CELLS COUNTED % (AUTO) 100 %
[2020-06-22 15:22] LABS: ANION GAP 7 (5-19); BLOOD UREA NITROGEN 15 mg/dL (7-20); CALCIUM 9.7 mg/dL (8.4-10.2); CARBON DIOXIDE 33 mmol/L (22-30); CHLORIDE 101 mmol/L (98-107); GLUCOSE 87 mg/dL (75-110); POTASSIUM 4.9 mmol/L (3.6-5.0)
[2020-06-22 15:25] LABS: C-REACTIVE PROTEIN < 5.0 mg/L (<10.0)
[2020-06-22 15:42] LABS: ERYTHROCYTE SEDIMENTATION RATE 7 mm/hr (0-15)
--- NOTE | 2020-06-22 15:42 | RADIOLOGY REPORT (SQ) ---
EXAM DESCRIPTION: CT CERVICAL SPINE WITHOUT; CT THORACIC SPINE WITHOUT IMAGES COMPLETED DATE/TIME: 06/22/2020 2:25 pm REASON FOR STUDY: NECK PAIN AND NUMBNESS; NUMBNESS COMPARISON: None. TECHNIQUE: Axial images acquired through the cervical spine without intravenous contrast. Images re viewed with lung, soft tissue and bone windows. Reconstructed coronal and sagittal MPR images review ed. Images stored on PACS. Axial images acquired through the thoracic spine without intravenous contrast. Images reviewed with lung, soft tissue and bone windows. Reconstructed coronal and sagittal MPR images reviewed. Images stored on PACS. All CT scanners at this facility use dose modulation, iterative reconstruction, and/or weight based d osing when appropriate to reduce radiation dose to as low as reasonably achievable (ALARA). [facility]: Dose Right [facility]: CareDose [facility]: Dose Right [facility]: Teradose 4D [facility]: Smart [employer] RADIATION DOSE: CT Rad equipment meets quality standard of care and radiation dose reduction techniq ues were employed. CTDIvol: 20.1 mGy. DLP: 516 mGy-cm.; CT Rad equipment meets quality standard of ca re and radiation dose reduction techniques were employed. CTDIvol: 9.2 mGy. DLP: 393 mGy-cm. mGy. LIMITATIONS: None. FINDINGS: CERVICAL ALIGNMENT: Anatomic. MINERALIZATION: Normal. VERTEBRAL BODIES: No fractures or dislocation. DISCS: C2-3, C3-4 and C4-5 discs look relatively maintained. Status post corpectomy with strut graft spanning C6 and C7 with disc space is no longer identified at these levels. FACETS, LATERAL MASSES, POSTERIOR ELEMENTS: Intact. No evidence of high-grade central or foraminal s tenosis. HARDWARE: Anterior instrumentation from C5 through T1. Posterior instrumentation from C3 through T2. Instrumentation looks intact. VISUALIZED RIBS: No fractures. SOFT TISSUES: No significant or acute findings. OTHER: No other significant finding. THORACIC ALIGNMENT: Anatomic. MINERALIZATION: Normal. VERTEBRAL BODIES: No fractures or dislocation. DISCS: No significant disc disease. POSTERIOR ELEMENTS: No fractures. No dislocation. No acute findings. HARDWARE: Lower cervical instrumentation extends to the T2 level, see above. VISUALIZED RIBS: No fractures. LUNGS AND SOFT TISSUES: No significant or acute findings. OTHER: No other significant finding. IMPRESSION: 1. Cervicothoracic instrumentation, intact as assessed. 2. No spinal malalignment or fracture or worrisome bone lesion. TECHNICAL DOCUMENTATION: JOB ID: [id number] Quality ID # [id number]: Final reports with documentation of one or more dose reduction techniques (e.g., Au tomated exposure control, adjustment of the mA and/or kV according to patient size, use of iterative reconstruction technique) 2010 [employer]- All Rights Reserved Reading location - IP/workstation name: [email or web address]
--- NOTE | 2020-06-22 15:42 | RADIOLOGY REPORT (SQ) ---
EXAM DESCRIPTION: CT CERVICAL SPINE WITHOUT; CT THORACIC SPINE WITHOUT IMAGES COMPLETED DATE/TIME: 06/22/2020 2:25 pm REASON FOR STUDY: NECK PAIN AND NUMBNESS; NUMBNESS COMPARISON: None. TECHNIQUE: Axial images acquired through the cervical spine without intravenous contrast. Images re viewed with lung, soft tissue and bone windows. Reconstructed coronal and sagittal MPR images review ed. Images stored on PACS. Axial images acquired through the thoracic spine without intravenous contrast. Images reviewed with lung, soft tissue and bone windows. Reconstructed coronal and sagittal MPR images reviewed. Images stored on PACS. All CT scanners at this facility use dose modulation, iterative reconstruction, and/or weight based d osing when appropriate to reduce radiation dose to as low as reasonably achievable (ALARA). [facility]: Dose Right [facility]: CareDose [facility]: Dose Right [facility]: Teradose 4D [facility]: Smart [employer] RADIATION DOSE: CT Rad equipment meets quality standard of care and radiation dose reduction techniq ues were employed. CTDIvol: 20.1 mGy. DLP: 516 mGy-cm.; CT Rad equipment meets quality standard of ca re and radiation dose reduction techniques were employed. CTDIvol: 9.2 mGy. DLP: 393 mGy-cm. mGy. LIMITATIONS: None. FINDINGS: CERVICAL ALIGNMENT: Anatomic. MINERALIZATION: Normal. VERTEBRAL BODIES: No fractures or dislocation. DISCS: C2-3, C3-4 and C4-5 discs look relatively maintained. Status post corpectomy with strut graft spanning C6 and C7 with disc space is no longer identified at these levels. FACETS, LATERAL MASSES, POSTERIOR ELEMENTS: Intact. No evidence of high-grade central or foraminal s tenosis. HARDWARE: Anterior instrumentation from C5 through T1. Posterior instrumentation from C3 through T2. Instrumentation looks intact. VISUALIZED RIBS: No fractures. SOFT TISSUES: No significant or acute findings. OTHER: No other significant finding. THORACIC ALIGNMENT: Anatomic. MINERALIZATION: Normal. VERTEBRAL BODIES: No fractures or dislocation. DISCS: No significant disc disease. POSTERIOR ELEMENTS: No fractures. No dislocation. No acute findings. HARDWARE: Lower cervical instrumentation extends to the T2 level, see above. VISUALIZED RIBS: No fractures. LUNGS AND SOFT TISSUES: No significant or acute findings. OTHER: No other significant finding. IMPRESSION: 1. Cervicothoracic instrumentation, intact as assessed. 2. No spinal malalignment or fracture or worrisome bone lesion. TECHNICAL DOCUMENTATION: JOB ID: [id number] Quality ID # [id number]: Final reports with documentation of one or more dose reduction techniques (e.g., Au tomated exposure control, adjustment of the mA and/or kV according to patient size, use of iterative reconstruction technique) 2010 [employer]- All Rights Reserved Reading location - IP/workstation name: [email or web address]
== END ==
LOC: RAD 14:11
DX: M54.2 Cervicalgia (principal); R20.0 Anesthesia of skin
CPT/HCPCS: 36415; 72125; 72128; 80048; 85025; 85652; 86140; 87040